=== PATIENT | female | born 1975 | race Caucasian/White ===

== ENCOUNTER 2017-11-30 12:28 | Emergency (ER) | END 2017-11-30 15:07 | disposition home or self-care (01) ==

== ENCOUNTER 2017-12-28 12:27 | Emergency (ER) | END 2017-12-28 15:48 | disposition home or self-care (01) ==

== ENCOUNTER 2018-12-13 10:00 | Emergency (ER) | payer MEDICAID ==
[~2018-12-13] VITALS: Wt 73.0 kg
[~2018-12-13 10:00] MED LIST: CIPR-193 PO; FERR325T31; HYDR-4011 PO; PREN1TAB49
[2018-12-13 10:19] VITALS: BP 139/67; PULSE 70; RESP 18
[2018-12-13] MEDS ORDERED: KETOROLAC 30 MG INJ IM STA (10:35)
[2018-12-13] MEDS ORDERED: CYCL10TA7 PO (10:39)
[2018-12-13] MEDS ORDERED: IBUP-1542 PO (10:39)
--- NOTE | 2018-12-13 10:46 | ERD ---
ER Documentation Chief Complaint Chief Complaint LOWER BACK PAIN RADIATING TO LEGS 5 DAYS HPI Patient is a 43-year-old female presents the ER for concerns of low back pain radiating down her left leg times 5 days. Patient denies any falls or trauma. Patient does not recall lifting anything heavy that contributed to the pain. States she been taking ibuprofen which does provide her with minimal alleviation of pain. Patient denies any saddle anesthesia, urine incontinence or stool incontinence. Patient denies any dysuria, frequency, urgency or hematuria. Patient denies any fevers or chills. Patient denies any chest pain or shortness of breath. Patient denies abdominal pain. Patient denies any nausea or vomiting. ROS All systems reviewed and are negative except as per history of present illness. Medications Home Meds Active Scripts Ibuprofen* (Motrin*) 600 Mg Tab, 600 MG PO Q6, #30 TAB Prov:JOHNATHAN SHAFER PA-C 12/13/18 Cyclobenzaprine Hcl* (Cyclobenzaprine Hcl*) 10 Mg Tablet, 10 MG PO TID, #15 TAB Prov:JOHNATHAN SHAFER PA-C 12/13/18 Hydrocodone/Acetaminophen ([place] 5-325 Tablet) 1 Each Tablet, 1 EACH PO BID PRN for PAIN LEVEL 6-10 for 7 Days, #14 TAB Prov:KAMILAH RIVERA MD 11/30/17 Ciprofloxacin Hcl* (Ciprofloxacin Hcl*) 250 Mg Tablet, 250 MG PO BID, #10 TAB Prov:KAMILAH RIVERA MD 11/30/17 Reported Medications Ferrous Sulfate (Ferosul) 325 Mg Tablet 06/07/10 Vits W-Ca,Fe,Fa(<1MG) () 1 Tab Tablet 06/07/10 Allergies Allergies: Coded Allergies: No Known Drug Allergy (Verified Allergy, Mild, 08/24/09) PMhx/Soc History of Surgery: No Anesthesia Reaction: No Hx Neurological Disorder: No Hx Respiratory Disorders: No Hx Cardiac Disorders: No Hx Psychiatric Problems: No Hx Miscellaneous Medical Probl: No Hx Alcohol Use: No Hx Substance Use: No Hx Tobacco Use: No Smoking Status: Never smoker FmHx Family History: No diabetes Physical Exam Vitals Vital Signs Date Temp Pulse Resp B/P (MAP) Pulse Ox O2 O2 Flow FiO2 Time Delivery Rate 4/19/19 98.9 70 18 139/67 99 10:19 (91) Physical Exam GENERAL: Well-developed, well-nourished male. Appears in no acute distress. HEAD: Normocephalic, atraumatic. EYES: Pupils are equally reactive bilaterally. EOMs grossly intact. No conjunctival erythema. ENT: Moist mucous membranes. No uvula deviation. No kissing tonsils. NECK: Supple. No meningismus. Normal range of motion of the neck. LUNG: Clear to auscultation bilaterally. No rhonchi, wheezing, rales or coarse breath sounds. HEART: Regular rate and rhythm. No murmurs, rubs or gallops. ABDOMEN: No scars, ecchymosis or rashes noted. Soft, nontender, and nondistended. Positive bowel sounds in all four quadrants. No rebound tenderness, no guarding. (-) McBurney's point tenderness. No CVA tenderness. BACK: No midline tenderness. Tender to palpation over the left lumbar paraspinal muscles. Positive left straight leg raise. EXTREMITIES: Equal pulses bilaterally. No peripheral clubbing, cyanosis or edema. No unilateral leg swelling. NEUROLOGIC: Alert and oriented. Moving all four extremities without any difficulty. Normal speech. Steady gait. SKIN: Normal color. Warm and dry. No rashes or lesions. Results 24 hrs Current Medications Medications Dose Sig/Rosi Start Time Status Last (Trade) Ordered Route PRN Stop Time Admin Dose Reason Admin Ketorolac 30 mg ONCE STAT 12/13/18 DC Tromethamine IM 10:35 (Toradol) 12/13/18 10:36 Procedures/MDM MEDICAL DECISION MAKING: This is a 43-year-old female no past medical history presents the ER for concerns of lower back pain radiating down her left leg times 5 days. Vital signs were reviewed. Patient was afebrile. Patient denied any saddle anesthesia, urinary incontinence, bowel incontinence, night pain or recent trauma. Urine test was negative. Patient was given Toradol for pain. Patient likely has sciatica. Patient will be given muscle relaxant advised not to take when driving or operating any machinery. Low suspicion for cauda equine syndrome, spinal fractures, epidural abscess, spinal metastases, osteomyelitis, aortic dissection, ruptured or leaking AA, DJD, pyelonephritis or nephrolithiasis. PRESCRIPTIONS: Ibuprofen Flexeril DISCHARGE: At this time, patient is stable for discharge and outpatient management. RICE therapy and ROM exercises were advised to avoid stiffness. I have instructed the patient to follow-up with his/her primary care physician in 1-2 days. I have discussed with the patient the possibility of needing to see an strategy specialist for further workup and imaging if the pain persists. I have instructed the patient to promptly return to the ER for any new or worsening symptoms including increased pain, swelling, warmth, urinary incontinence, stool incontinence, weakness or numbness. The patient and/or family expressed understanding of and agreement with this plan. All questions were answered. Home care instructions were provided. Disclaimer: Inadvertent spelling and grammatical errors are likely due to EHR/dictation software use and do not reflect on the overall quality of patient care. Also, please note that the electronic time recorded on this note does not necessarily reflect the actual time of the patient encounter. Departure Diagnosis: Primary Impression: Lower back pain Chronicity: acute Back pain laterality: left Sciatica presence: with sciatica Sciatica laterality: sciatica of left side Qualified Codes: M54.42 - Lumbago with sciatica, left side Additional Impression: Sciatica Laterality: left Qualified Codes: M54.32 - Sciatica, left side Condition: Fair Patient Instructions: Back Pain W/ Sciatica Additional Instructions: Llame al doctor MAANA y karo caitie TIM PARA DENTRO DE 1-2 CERDA.Dgale a la secretaria que nosotros le instruimos hacer esta tim.Avise o llame si hidalgo condicin se empeora antes de la tim. Regresa aqui si peor o no mejor. JOHNATHAN SHAFER PA-C Dec 13, 2018 10:46
== END 2018-12-13 11:16 | disposition home or self-care (01) ==
LOC: FTE 10:00
DX: M54.42 Lumbago with sciatica, left side (principal)
CPT/HCPCS: 81025; 96372; J1885; Z7502